=== PATIENT | female | born 1995 | race Caucasian/White ===

== ENCOUNTER 2018-03-24 11:14 | Emergency (ER) | payer OTHER ==
[~2018-03-24] VITALS: Ht 152.4 cm; Wt 50.0 kg
[~2018-03-24 11:14] MED LIST: NOCURR
[2018-03-24 11:21] VITALS: BP 117/59
[2018-03-24] MEDS ORDERED: IBUPROFEN 600 MG TABLET PO ONE (12:15)
== END 2018-03-24 12:47 | disposition home or self-care (01) ==
LOC: EMS 11:14
DX: M62.838 Other muscle spasm (principal); M54.2 Cervicalgia

== ENCOUNTER 2019-04-09 17:20 | Emergency (ER) | payer OTHER ==
[~2019-04-09] VITALS: Ht 152.4 cm; Wt 59.1 kg
[2019-04-09] MEDS ORDERED: IBUPROFEN 600 MG TABLET PO ONE (20:30)
[2019-04-09 21:28] VITALS: BP 106/60
== END 2019-04-09 21:38 | disposition home or self-care (01) ==
LOC: EMS 17:29
DX: S93.491A Sprain of other ligament of right ankle, initial encounter (principal); Z90.49 Acquired absence of other specified parts of digestive tract; X50.1XXA Overexertion from prolonged static or awkward postures, initial encounter; Y93.01 Activity, walking, marching and hiking; Y92.89 Other specified places as the place of occurrence of the external cause; Y99.8 Other external cause status
CPT/HCPCS: 29515